=== PATIENT | female | born 1940 | race Caucasian/White ===

== ENCOUNTER 2024-01-27 11:16 | Emergency (ER) | payer OTHER, SELFPAY ==
[2024-01-27 11:23] VITALS: BP 169/87
[2024-01-27 12:00] VITALS: BP 162/73
[2024-01-27 12:21] VITALS: BP 149/89
--- NOTE | 2024-01-27 12:47 | ED.GENMED ---
History of Present Illness
General
Chief Complaint: Head Injury
Source: patient
Exam Limitations: none
Time Seen by Provider: 01/27/24 12:00
Nursing documentation reviewed up to this point in time: agreed with
History of Present Illness
History of Present Illness:
pt is a 83 y/o F with h/o GERD
previous hip orif by umair
here with pain in the right shoulder and pain in right lateral suprerior orbit after mechnaical fall today while in a grocery store
pt says she tripped on the floor as she was trying to reach for her cart and landedon her right arm and face
she did not Lose consciousness
+ laceration righ tlateral orbital region from her glasses
no headache, nasuea, vomiting, weakness,
having mostly right shoulder pain
ems called who helped pt up
no back pain, neck pain, cp, sob, abdomianl pain
no AC
Past History
Past History
ED Past Medical History: GERD and HTN
ED Past Surgical History: Appendectomy, Gynecological (Hyster), Orthopedic (Right hip replacaement) and Tonsilectomy
Social History
Tobacco: Former smoker
Alcohol: None
Personal:
Living: alone
Employment: Employed
Review of Systems
Review of Systems
Allergies reviewed?: Yes
All Other Systems: Not applicable
Phy Exam
Physical Exam
Physical Exam:
GENERAL: Alert , in no apparent distress
HEAD: NCAT
FACE: RIGHT LATERAL SUPERIOR ORBIT RIM TENDER WITH STS AND LACERATION 3 CM LINEAR
NO INFERIOR ORBITAL TENDENRESS
NORMAL EOMS
NECK: no midline tenderness, active ROM intact, no paraspinal muscle tenderness;
EYE: pupils equal and reactive, EOMs intact.
small subconjunctivaly hem L lateral eye(pt had injection in her eye a few days ago)
ENT: o/p clr, mmm. no hemotympanum
CARDIAC: Regular rate and rhythm, no edema
LUNGS: Clear breath sounds bilaterally, no acute respiratory distress, no wheezes/rales/rhonchi
ABDOMEN: Soft, without focal tenderness, no r/g, no cvat
NEUROLOGICAL: Alert and oriented, no focal neuro deficits, CN intact, 5/5 strength, sensation intact
SKIN: Warm and dry, laceration
MUSCULOSKELETAL: swollen R upper arm/shoulder region limited painful ROM
no dislocatin
no distal pain
normal pelvis
ranged both hips and knees no pain
PSYCH: Normal and appropriate interaction.
Course
Orders/Labs/Results
Orders:
Orders
01/27/24 11:56
Shoulder, Right, Trauma [CR Shoulder, Trauma - Right] Urgent
Comment:
Reason For Exam: Pain after fall
01/27/24 12:43
CT Cervical Spine W/o Iv Contr Urgent
Comment:
Reason For Exam: fall
CT Head W/o Iv Contrast Urgent
Comment:
Reason For Exam: right sided head injury
Acetaminophen [Tylenol] 650 mg PO NOW STA
Tetanus/Diphth/Acelpertussis [Adacel] 0.5 ml IM .ONCE ONE
Vital Signs
Initial and Last Documented VS:
Initial Vital Signs
Temp Pulse Resp BP Pulse Ox
97.6 F 74 20 169/87 96
01/27/24 11:23 01/27/24 11:23 01/27/24 11:23 01/27/24 11:23 01/27/24 11:23
Last Documented Vital Signs
Temp Pulse Resp BP Pulse Ox
97.6 F 92 18 145/88 96
01/27/24 11:23 01/27/24 15:25 01/27/24 15:25 01/27/24 15:25 01/27/24 15:25
Procedures
Laceration Closure
Right Lateral Eye:
Status of Wound: clean
Size of Wound in cm: 3
Description of Wound Edges: sharp
Preparation: cleaned with saline
Anesthesia: 1% Lidocaine with epi
Revision/Debridement: minor revision
Wound exploration: explored to base- no FB
Type of Closure: layered closure
Skin Closure Material: 6-0 nylon and 5-0 vicryl
Number of sutures: 9
MDM/Problems Addressed
Differential Diagnosis Includes:
right shoulder pain/fracture, head injury , facial laeration, contusion,, concussion
MDM/Problems Addressed:
83-year-old female not anticoagulated with mechanical trip and fall out of grocery store causing a right facial laceration and contusion as well as a right shoulder injury. Patient has limited painful range of motion of her right proximal shoulder
and x-rays independently reviewed by me which is consistent with a humeral fracture which is comminuted and slightly impacted. She is neurovascularly intact. There is no other musculoskeletal injuries. Her laceration was open and to the lateral
orbit, CT head and neck negative for trauma. Laceration was closed by me and well-approximated. Patient tolerated procedure well. Tylenol for pain, sling, follow-up with Ortho. I did speak with Dr. Mclean who recommended patient be seen in the
office, this may be a surgical fix
*Critical Care Note
Total Time (30-74mins, 75-104mins- exclusive of procedures): Not Applicable
ED Attending Note
-
Portions of this chart may have been created with voice recognition software.� Occasional wrong word or��sound alike� substitutions may have occurred due to the inherent limitations of voice recognition software.
Discharge Plan
Departure
Patient Disposition: Home (Routine Discharge)
Date of Disposition: 01/27/24
Time of Disposition: 15:02
Patient with high blood pressure during this ER visit?: Yes
Condition: Fair
Covid-19: Not Applicable
Discharge Problem:
Closed fracture of shoulder, Laceration of face, Head injury
Instructions: Head Injury in Adults (DC), Laceration Repair With Stitches (DC), Upper Arm Fracture ED
Prescriptions:
No Action
vitamins A,C,M-dwop-sujujl [PreserVision AREDS] 1 CAP capsule
1 cap PO DAILY
biotin 1 MG capsule
1 mg PO DAILY
amlodipine 5 MG tablet
5 mg PO DAILY Qty: 15 0RF
Meclizine Hcl [Motion Sickness] 25 MG Tablet
25 mg PO TID Qty: 12 0RF
cephalexin 500 MG capsule
500 mg PO BID Qty: 14 0RF
famotidine 20 MG tablet
20 mg PO BID Qty: 28 0RF
Rx Instructions:
Take 20 mg twice a day for 14 days
ascorbic acid (vitamin C) [Vitamin C] 500 MG tablet
1,000 mg PO BID Qty: 56 0RF
Rx Instructions:
Take 1,000 mg twice a day for 14 days
aspirin 81 MG tablet,chewable
81 mg PO DAILY Qty: 14 0RF
Rx Instructions:
Take 81 mg daily for 14 days
zinc sulfate 220 MG capsule
220 mg PO DAILY Qty: 14 0RF
Rx Instructions:
Take 220 mg daily for 14 days
cholecalciferol (vitamin D3) 1,000 UNITS tablet
2,000 units PO DAILY Qty: 28 0RF
Rx Instructions:
Take 2,000 units daily for 14 days
melatonin 5 MG tablet
5 mg PO HS Qty: 14 0RF
Rx Instructions:
Take 5 mg daily at bedtime for 14 days
Referrals:
Siddharth Vaughn MD [Family Provider] -
Rogelio Mclean MD [Active] - Follow up in 5-7 days
Activity Restrictions/Additional Instructions:
YOU BROKE YOUR SHOULDER
WEAR THE SLING UNTIL YOU SEE THE ORTHOPEDIST
CALL FOR AN APPOINTMENT
TAKE TYLENOL EVERY6 HOURS FOR PAIN
ICE OFF AND ON
KEEP THE WOUND CLEAN AND DRY FOR 24 HOURS
AFTER THAT YOU CAN GET IT WET IN THE BATH/SHOWER ONCE A DAY AND MAKE SURE IT IS CLEAN AND THERE IS NO DRIED BLOOD ON THE STITCHES
APPLY NEOSPORIN AND A BANDAID
THE STITCHES NEED TO BE REMOVED IN ABOUT 5-7 DAYS, SEE YOUR DOCTOR FOR THIS.
THE LAST DAY BEFORE STITCHES OUT, NO OINTMENT, LEAVE OPEN TO AIR
WATCH FOR SIGNS OF INFECTION AND RETURN NEEDED FOR PAIN, SWELLING, REDNESS, DRAINAGE, BLEEDING.
THE AT SCAN SHOWS NO INJURIES TO YOUR EYE, HEAD OR NECK
Interventions
Interventions:
*Risk Screen - Suicide Last Done: 01/27/24 11:23
*General Assessment Last Done: 01/27/24 11:23
*Neglect/Abuse Screening Last Done: 01/27/24 11:23
ED- Fall Risk Assessment Last Done: 01/27/24 11:44
*ED COVID-19 Vaccine History Last Done: 01/27/24 15:43
*Nursing Disposition Last Done: 01/27/24 15:35
ED- Neurological Assessment Last Done: 01/27/24 11:44
ED-Skin Assessment Last Done: 01/27/24 11:44
Discharge Date and Time
Discharge Date/Time: 01/27/24 15:30
Print Language: GERMAN
[2024-01-27] MEDS: TYLENOL 650 MG PO (12:54)
[2024-01-27] MEDS: ADACEL 0.5 ML IM (12:55)
[2024-01-27 13:00] VITALS: BP 151/87
[2024-01-27 14:19] VITALS: BP 145/91
[2024-01-27 15:25] VITALS: BP 145/88
== END 2024-01-27 15:30 | disposition home or self-care (01) ==
LOC: EMR 11:16
PROVIDERS: EMERGENCY PHYSICIAN Emergency Medicine; FAMILY PHYSICIAN Family Medicine
DX: S42.211A Unspecified displaced fracture of surgical neck of right humerus, initial encounter for closed fracture (principal); S09.90XA Unspecified injury of head, initial encounter; S01.81XA Laceration without foreign body of other part of head, initial encounter; W01.0XXA Fall on same level from slipping, tripping and stumbling without subsequent striking against object, initial encounter; I10 Essential (primary) hypertension; Z87.891 Personal history of nicotine dependence; Z23 Encounter for immunization
CPT/HCPCS: 99285; 12052; 90471; 70450; 72125; 73030; 90715

== ENCOUNTER 2024-10-03 10:05 | Inpatient (IN) | payer OTHER, SELFPAY ==
[2024-10-02 12:24] VITALS: BP 156/100
--- NOTE | 2024-10-02 13:03 | ED.GENMED ---
History of Present Illness
General
Chief Complaint: Musculo-Skeletal Complaint
Time Seen by Provider: 10/02/24 12:37
History of Present Illness
History of Present Illness:
84-year-old female presents to the emergency department for evaluation of right hip and buttock pain after a fall in the parking lot. She is unable to bear weight on the right lower extremity. Reports pain primarily to the buttock region. She is
not on anticoagulants
Past History
Past History
ED Past Medical History: GERD and HTN
ED Past Surgical History: Appendectomy, Gynecological (Hyster), Orthopedic (Right hip replacaement) and Tonsilectomy
Social History
Tobacco: Former smoker
Alcohol: None
Personal:
Living: alone
Employment: Employed
Review of Systems
Review of Systems
Allergies reviewed?: Yes
All Other Systems: ROS reviewed and negative except as documented in HPI and ROS
Phy Exam
Physical Exam
Physical Exam:
GEN: Well appearing, NAD, WDWN
Eyes: PERRLA, EOMs intact, no scleral icterus
HENT: NCAT, oral mucosa moist
Lungs: CTAB, no wheezes, rales, rhonchi, normal chest wall excursion
Cardiac: RRR, no M/R/G, no peripheral edema. Radial pulses 2+ bilat
Abdomen: S, NT, ND, NABS, no masses or hepatosplenomegaly
Neuro: AO x 3
MSK: No gross deformity or ecchymosis. No shortening or external rotation of the right lower extremity. Moderately tender to palpation of the gluteal region
Skin: No rashes, petechiae. Normal color, no pallor or jaundice.
Psych: Calm, cooperative, proper hygiene
Course
Orders/Labs/Results
Orders:
Orders
10/02/24 13:02
Acetaminophen [Tylenol] 1,000 mg PO NOW STA
Ibuprofen [Motrin] 600 mg PO NOW STA
CR Hip - RT w/wo Pel 2-3 Vw* Urgent
Comment:
Reason For Exam: fall gluteal pain
Include a pelvis x-ray?: Yes
10/02/24 15:26
Tramadol HCl [Ultram] 50 mg PO NOW STA
Pt Eval And Treat Urgent
Treatment: R sup/inf pubic rami fx; WBAT
Activity Level: As Tolerated
10/02/24 16:49
Complete Blood Count/With Diff Urgent
Comprehensive Metabolic Panel Urgent
10/02/24 17:32
Admit/Transfer Patient As Directed
Co-Sign Provider:
Level of Care: Observation services
Assign to:: Medical/Surgical
Physician / Group: Shira
Diagnosis: Pelvic Fracture
PRN Pain Medication Management As Directed
May give lesser potent ordered pain med per pt: Yes
preference::
Protocol:: Medication orders for pain may be administered in a
manner that supports deferring to patient preference
when the pt is:
- Requesting an ordered lesser potent pain medication.
Least to most potent pain medications are defined
as: acetaminophen < NSAID < tramadol < opioids
(morphine, oxycodone, hydromorphone).
- Requesting a lesser dose of the same medication IF
ORDERED.
- Requesting a less intrusive route of administration
if both routes are prescribed by the provider (PO <
IV).
10/02/24 17:33
Code Status As Directed
Resuscitation Status: Full Code
Abnormal Lab Results
10/02/24
16:49
MCHC 32.3 L g/dL
(33.0-37.0)
MPV 11.2 H fL
(7.4-10.4)
Abs Immat Gran (auto) 0.1 H 10^3/uL
(0-0.05)
Absolute Neuts (auto) 8.3 H 10^3/uL
(1.4-6.5)
Absolute Lymphs (auto) 1.1 L 10^3/uL
(1.2-3.4)
Neutrophils % 82.9 H %
(42.2-75.2)
Lymphocytes % 11.3 L %
(20.5-51.1)
Glucose 126 H mg/dl
(70-99)
10/02/24 16:49
10/02/24 16:49
Vital Signs
Initial and Last Documented VS:
Initial Vital Signs
Temp Pulse Resp BP Pulse Ox
97.4 F 99 16 156/100 98
10/02/24 12:24 10/02/24 12:24 10/02/24 12:24 10/02/24 12:24 10/02/24 12:24
Last Documented Vital Signs
Temp Pulse Resp BP Pulse Ox
97.4 F 99 16 156/100 98
10/02/24 12:24 10/02/24 12:24 10/02/24 12:24 10/02/24 12:24 10/02/24 12:24
MDM/Problems Addressed
MDM/Problems Addressed:
Imaging reveals superior and inferior pubic rami fracture on the right. She was given analgesics but remained quite unsteady with ambulation and was recommended for skilled rehab by PT. Unfortunately did not tolerate tramadol well in terms of
lightheadedness and fogginess. Will admit to the medical service for further management
*Critical Care Note
Total Time (30-74mins, 75-104mins- exclusive of procedures): Not Applicable
ED Attending Note
-
Portions of this chart may have been created with voice recognition software.� Occasional wrong word or��sound alike� substitutions may have occurred due to the inherent limitations of voice recognition software.
Discharge Plan
Departure
Patient Disposition: Admit
Date of Disposition: 10/02/24
Time of Disposition: 17:14
Presentation/result/management discussed w/ accepting MD/DO: Hospitalist
Discharge Problem:
Closed fracture of right superior pubic ramus, Closed fracture of right inferior pubic ramus
Interventions
Interventions:
*Risk Screen - Suicide Last Done: 10/02/24 12:24
*General Assessment Last Done: 10/02/24 12:40
*Neglect/Abuse Screening Last Done: 10/02/24 12:24
*ED- Fall Risk Assessment Last Done: 10/02/24 12:40
*ED COVID-19 Vaccine History Last Done: 10/02/24 12:40
ED-Musculoskeletal Assessment Last Done: 10/02/24 12:40
[2024-10-02] MEDS: TYLENOL 1000 MG PO ×2 (13:07→22:20)
[2024-10-02] MEDS: MOTRIN 600 MG PO (13:08)
--- NOTE | 2024-10-02 15:28 | CM ---
ED CM initially consulted for VN
Per nursing, pt with difficulty ambulating
PT eval will be placed
Pt resides with her dtr/Hiwot in a 2 story in-law suite with 13 steps to 2nd floor sleeping and bathing area
Pt is typically indep with ADLs and ambulation with no ADs
Pt has a WW, SPC and commode for use as needed
Pt has hx with [facility] and they are VN agency preference
Pt denied SNF hx or financial insecurities
If needed, dtr's side of home has a 1st floor bedroom and 2STE+ 1 threshold step
Dtr noted concern that she would not be able to physically provide safe care for pt if she is unable to ambulate
PCP- Be Tyler
Rx- Megan Manuel
Dtr is primary contact at [phone]
Son is currently out of country in the [facility]
If SNF needs on dc, pt will require auth
Discharge Disposition- TBD, home with VN vs SNF
[2024-10-02] MEDS: ULTRAM 50 MG PO (15:32)
[2024-10-02 16:25] VITALS: BP 150/106
[2024-10-02 16:30] VITALS: BP 150/100
[2024-10-02 17:01] LABS: % Basophils 0.2 % (0-2); % Eosinophils 0.1 % (0-6); % Immature Granulocytes 0.5 % (0-0.5); % Lymphocytes 11.3 % (20.5-51.1); % Neutrophils 82.9 % (42.2-75.2); Absolute Immature Granulocytes 0.1 10^3/uL (0-0.05); Absolute Lymphocytes 1.1 10^3/uL (1.2-3.4); Absolute Monocytes 0.5 10^3/uL (0.1-0.6); Absolute Neutrophils 8.3 10^3/uL (1.4-6.5); Hemoglobin 14.2 g/dL (12.0-16.0); Mean Corp Hgb Conc. 32.3 g/dL (33.0-37.0); Mean Corpuscular Hgb 28.4 pg (27.0-31.0); Mean Platelet Volume 11.2 fL (7.4-10.4); Nucleated Red Blood Cells % 0 %; Platelet Count 139 10^3/uL (130-400); Red Cell Dist. Width 13.4 % (11.5-14.5)
[2024-10-02 17:09] LABS: ALT (SGPT) 16 U/L (0-35); AST (SGOT) 27 U/L (14-36); Albumin 4.3 g/dl (3.5-5.0); Alkaline Phosphatase 101 U/L (38-126); Blood Urea Nitrogen 15 mg/dl (7-17); Calcium 9.3 mg/dl (8.4-10.2); Carbon Dioxide 29 mmol/L (22-30); Chloride 102 mmol/L (98-107); Glucose 126 mg/dl (70-99); Potassium 4.3 mmol/L (3.5-5.1); Sodium 141 mmol/L (135-145); Total Bilirubin 0.8 mg/dl (0.2-1.3); Total Protein 6.9 g/dl (6.3-8.2); eGFR > 60.00
--- NOTE | 2024-10-02 17:36 | HPS.HSE ---
Addendum entered and electronically signed by Shirley Silva MD 10/02/24 18:24:
I saw and examined the patient.
The [employer] or PA's note was reviewed and I agree with the note.
Comment:
84 years old female sustained mechanical fall presented with right lower extremity pain upon bearing weight. No head injury, no LOC.
Physical Exam
General: Comfortable and Conversant
HEENT: Anicteric and Moist mucous membranes
Respiratory: Clear and Non Labored Respirations
Cardiac: S1/S2, Regular Rhythm and Murmur
GI: Soft and Non Tender
Rectal: No rectal bleeding.
Musculoskeletal: No Clubbing, No Cyanosis and No Edema
Skin: Warm and Dry
Neuro: Awake, Alert, Oriented and Nonfocal/grossly intact
Psych: Calm
#Right Superior and Inferior Pubic Rami Fractures
Mechanical fall
-Consult Ortho
-Consult PT/OT
-Continue Tylenol 1000mg TID
-Continue ibuprofen for moderate pain and low dose tramadol for severe pain
# Cardiac Murmur
-Patient denies any prior history of murmur. No chest pain or sob
-Check Echocardiogram
# Possible undiagnosed HTN
Elevated BP upon visit in ER but could be stress related, will monitor for now
DVT proph: Lovenox
Code Status: Full Code
Total time spent to see the patient, examine the patient, review data and lab results, discuss treatment plan with patient, ER doctor and nursing staff around 75 minutes.
Original Note:
Family Physician
-
Family Physician: Be Tyler DO
Chief Complaint
-
Fall
History of Present Illness
Patient is an 84 y/o female past medical history of hypertension, and macular degeneration who presents following a fall. Patient reports she was closing her car door after putting her groceries in the back seat. When she stepped back she fell
backwards landing on her right buttock. She presents with inability to bear weight on her right lower extremity due to pain. She was seen by PT in the ED and she was unable to ambulate safely enough to return home.
Medical History
Past Medical History
Past Medical History: Reports Other
Additional Past Medical History:
Essential Hypertension
GERD
Macular Degeneration
Past Surgical History: Reports Other
Additional Past Surgical History:
Hysterectomy
Bladder Tuck
Right Hip Replacement
Social History
Tobacco: Former Smoker
Living: With Family (In-Law Suite)
Family History
Family History: Not pertinent
Allergies / Home Medications
Allergies reflects when Allergies were last updated in [employer].
Home Medications with original date entered in [employer]
Allergy/Medication List:
Allergies
Allergy/AdvReac Type Severity Reaction Status Date / Time
codeine Allergy Itching Verified 10/02/24 12:26
hydrocodone Allergy ITCHINESS Verified 10/02/24 12:26
FROM
HYDROCODONE
DM
03-09-03
Penicillins Allergy Rash Verified 10/02/24 12:26
Home Medications
vitamins A,C,I-lcry-qdjofg 4,296 mcg-226 mg-90 mg capsule (PreserVision AREDS) 1 cap PO BID 04/25/17
Review of Systems
-
A 12 point ROS was completed and negative except as noted: Yes
Constitutional: Denies Fever
Respiratory: Denies Cough or Trouble Breathing
Cardiac: Denies Chest Pain
Physical Exam
Vital Signs
Vital Signs
Temp Pulse Resp BP Pulse Ox
97.4 F 99 16 156/100 98
10/02/24 12:24 10/02/24 12:24 10/02/24 12:24 10/02/24 12:24 10/02/24 12:24
Physical Exam
General: Comfortable and Conversant
HEENT: Anicteric and Moist mucous membranes
Respiratory: Clear and Non Labored Respirations
Cardiac: S1/S2, Regular Rhythm and Murmur
GI: Soft and Non Tender
Rectal: Deferred by Provider
Musculoskeletal: No Clubbing, No Cyanosis and No Edema
Skin: Warm and Dry
Neuro: Awake, Alert, Oriented and Nonfocal/grossly intact
Psych: Calm
Laboratory Results
-
10/02/24 16:49
10/02/24 16:49
Laboratory Results
Total Bilirubin 0.8 mg/dl (0.2-1.3) 10/02/24 16:49
AST 27 U/L (14-36) 10/02/24 16:49
ALT 16 U/L (0-35) 10/02/24 16:49
Alkaline Phosphatase 101 U/L (38-126) 10/02/24 16:49
Data Reviewed
-
Diagnostic Radiology: Report Reviewed by me
Lab Data: Labs Reviewed by me
Impression/Plan
-
Right Superior and Inferior Pubic Rami Fractures
-Consult Ortho
-Consult PT/OT
-Continue Tylenol 1000mg TID
-Continue ibuprofen for moderate pain and low dose tramadol for severe pain
Cardiac Murmur
-Patient denies any prior history of murmur
-Check Echocardiogram
DVT proph: Lovenox
Code Status: Full Code
[2024-10-02 20:34] VITALS: BP 174/90
[2024-10-02 21:50] VITALS: BP 160/98
[2024-10-02] MEDS: OCUVITE SOFTGEL 1 CAP PO (22:20)
[2024-10-02] MEDS: COLACE 100 MG PO (22:20)
[2024-10-02 23:15] VITALS: BP 150/97
--- NOTE | 2024-10-02 23:36 | PTCARENOTE ---
21:45 pt rec'vd from ER dx Fall R gluteal pain. pt is aax03 able to make needs known, vs WNL, pt educated on wt bearing status, c/o right glute pain 09/28, static overlay in place, ordered tylenol administered, vs WNL, oriented to unit.
[2024-10-03 07:15] VITALS: BP 171/96
--- NOTE | 2024-10-03 07:58 | CON.ORTHO ---
Consultation
-
Date/Time Consultation Requested: 10/02/24 21:49
Date/Time Consultation Performed: 10/03/24 07:45
Requesting Provider: YVONNE Minaya
Performing Provider: YVONNE Chery, Dr. Khoa Hawk
Reason for Consultation: R pubic rami fracture
Consultation - Orthopedics
History
84-year-old female with noted history of a right total hip arthroplasty with Dr. Anne in November 2013 for femoral neck fracture presented to [facility] after mechanical fall in the parking lot sustained yesterday. Isolated closed injury
and neuro vastly intact. She difficulty bearing weight see the emergency room and with imaging diagnosed with right pubic rami fractures. She reports pain is improved since she has been resting denies any other pain or current paresthesias
Allergies / Home Medications
Past Medical History: Reports Other
Additional Past Medical History:
Essential Hypertension
GERD
Macular Degeneration
Past Surgical History: Reports Other
Additional Past Surgical History:
Hysterectomy
Bladder Tuck
Right Hip Replacement
Social History
Tobacco: Former Smoker
Living: With Family (In-Law Suite)
Family History
Family History: Not pertinent
Allergy/AdvReac Type Severity Reaction Status Date / Time
codeine Allergy Itching Verified 10/02/24 12:26
hydrocodone Allergy ITCHINESS Verified 10/02/24 12:26
FROM
HYDROCODONE
DM
03-09-03
Penicillins Allergy Rash Verified 10/02/24 12:26
�Medication �Instructions �Recorded
vitamins A,C,U-gzha-bbeewg 4,296 1 cap PO BID Supplement 04/25/17
mcg-226 mg-90 mg capsule
(PreserVision AREDS)
Vital Signs / Lab Results
Temp Pulse Resp BP Pulse Ox
97.6 F 91 17 150/97 95
10/02/24 23:15 10/02/24 23:15 10/02/24 23:15 10/02/24 23:15 10/02/24 23:15
PHYSICAL EXAM:
General-patient is well-nourished well-developed no acute distress conscious when oriented.
Musculoskeletal:-Focused examination of the pelvis and right lower extremity shows skin is intact with no erythema edema or ecchymosis. There is anatomic alignment of limb length all rested in bed. No significant pain with gentle logroll of the
right hip. Mild discomfort with gentle hip range of motion deep in the pelvis. Neurovascularly intact at baseline L3-S1
IMAGING: X-rays taken of the right pelvis and hip show status post right total hip arthroplasty without evidence of hardware or relative osseous complication. There is minimally displaced fracture of the inferior and superior pubic rami of the
right side.
10/02/24 16:49
10/02/24 16:49
Assessment / Plan
84-year-old female with minimally displaced right inferior and superior pubic rami fractures sustained 02 October 2024
- Imaging was shown and reviewed with the patient. Recommend for nonoperative treatment as the fracture is stable.
- Recommend PT/OT with assist devices as indicated. Patient may be weightbearing as tolerated
- DVT prophylaxis per primary
- No diet restrictions from an orthopedic standpoint
- Pain appears controlled on current regimen
- Recommend outpatient follow-up in approximately 4 to 6 weeks from date of injury; orthopedic surgery will follow peripherally. Please reengage if any questions or concerns. Discharge information up-to-date
[2024-10-03] MEDS: OCUVITE SOFTGEL 1 CAP PO ×2 (08:56→22:26)
[2024-10-03] MEDS: COLACE 100 MG PO (08:56)
[2024-10-03] MEDS: TYLENOL 1000 MG PO ×3 (08:56→22:25)
[2024-10-03] MEDS: NORVASC 2.5 MG PO (09:04)
--- NOTE | 2024-10-03 10:00 | W.PN.HOSP.TC ---
Today's Communication/Plan
-
Echo
PRN amlodipine
Assessment / Plan
Assessment / Plan
Physical Exam
General: Comfortable and Conversant
HEENT: Anicteric and Moist mucous membranes
Respiratory: Clear and Non Labored Respirations
Cardiac: S1/S2, Regular Rhythm and Murmur
GI: Soft and Non Tender
Rectal: No rectal bleeding.
Musculoskeletal: No Clubbing, No Cyanosis and No Edema
Skin: Warm and Dry
Neuro: Awake, Alert, Oriented and Nonfocal/grossly intact
Psych: Calm
# Acute minimally displaced right inferior and superior pubic rami fractures sustained 02 October 2024, mechanical fall
- Orth reviewed Imaging, recommend for nonoperative treatment as the fracture is stable.
c/w Tylenol 1 gm TID, PRN Tramadol/ Ibuprofen
Appreciate Ortho help
c/w DVT prophylaxis.
# Cardiac Murmur
-Patient denies any prior history of murmur. No chest pain or sob
-Check Echocardiogram
# Possible undiagnosed primary HTN
Elevated BP upon visit in ER but could be stress related, will monitor for now
Add PRN low dose amlodipine
f/w Echo
DVT proph: Lovenox
Code Status: Full Code
Total time spent to see the patient, examine the patient, review data and lab results, discuss treatment plan with patient and nursing staff around 55 minutes
Anticipated Discharge: 24 - 48 hours
Subjective/Interval History
-
Date of Service: October 03, 2024
Objective Data
-
Vital Signs:
Vital Signs
Temp Pulse Resp BP Pulse Ox
98.5 F 100 16 187/107 95
10/03/24 07:15 10/03/24 09:04 10/03/24 07:15 10/03/24 09:04 10/03/24 07:15
I&O
10/02/24 10/03/24 10/04/24
06:59 06:59 06:59
Intake Total 480 / 480
Balance 480 / 480
[2024-10-03 11:05] VITALS: BP 137/94
--- NOTE | 2024-10-03 11:54 | CM ---
Addendum entered by Geno Lima 10/03/24 15:51:
auth approved by [email or web address] for [facility]; Auth [id number] from 10/04-10/09. Next review 10/09/24. Auth for ambulance transportation is [id number], copay is 230$. CM will update admissions at [facility] with auth information.
Addendum entered by Geno Lima 10/03/24 15:29:
[facility] agreed to accept patient tomorrow, pending COVID test. Please call report to [phone], fax # [phone]. Pending [facility] numbers for call to start auth.
Addendum entered by Geno Lima 10/03/24 14:37:
Per [facility] patient accepted pending bed availability, CM sent request for possible admission tomorrow and family first choice to liaison at [facility]. Patient will need auth from [facility]. CM will continue to follow for discharge
planning needs.
plan; tentative transfer to [facility] pending confirmation of bed and auth.
Original Note:
Per patient family requests for referrals to [facility] and [facility]. CM sent referrals and await response. CM will continue to follow for discharge planning needs.
Plan; SNF
[2024-10-03 13:27] VITALS: BP 141/70; PULSE 100; O2SAT 99
[2024-10-03 14:14] VITALS: BP 141/70; PULSE 101; O2SAT 98
[2024-10-03 15:15] VITALS: BP 134/88
[2024-10-03] MEDS: LOVENOX 40 MG SC (18:01)
[2024-10-03] MEDS: COLACE PO (22:31)
[2024-10-03 23:17] VITALS: BP 153/100
[2024-10-04 06:58] LABS: Hematocrit 42.1 % (37.0-47.0); Hemoglobin 14.1 g/dL (12.0-16.0); Mean Corp Hgb Conc. 33.5 g/dL (33.0-37.0); Mean Corpuscular Hgb 29.1 pg (27.0-31.0); Mean Corpuscular Volume 86.8 fL (81.0-99.0); Mean Platelet Volume 11.5 fL (7.4-10.4); Platelet Count 117 10^3/uL (130-400); Red Blood Cell Count 4.85 10^6/uL (4.20-5.40); Red Cell Dist. Width 13.4 % (11.5-14.5); White Blood Cell Count 6.3 10^3/uL (4.8-10.8)
[2024-10-04 07:30] VITALS: BP 165/97
[2024-10-04 07:39] LABS: Blood Urea Nitrogen 10 mg/dl (7-17); Calcium 9.2 mg/dl (8.4-10.2); Carbon Dioxide 28 mmol/L (22-30); Chloride 104 mmol/L (98-107); Glucose 103 mg/dl (70-99); Potassium 3.9 mmol/L (3.5-5.1); Sodium 140 mmol/L (135-145); eGFR > 60.00
[2024-10-04 08:05] LABS: TSH < 0.02 uIU/ml (0.47-4.68)
[2024-10-04] MEDS: NORVASC 2.5 MG PO (08:20)
[2024-10-04] MEDS: OCUVITE SOFTGEL 1 CAP PO (08:21)
[2024-10-04] MEDS: COLACE 100 MG PO (08:22)
[2024-10-04] MEDS: TYLENOL 1000 MG PO (08:22)
--- NOTE | 2024-10-04 09:05 | W.PN.HOSP.TC ---
Today's Communication/Plan
-
dc
Assessment / Plan
Assessment / Plan
Physical Exam
General: Comfortable and Conversant
HEENT: Anicteric and Moist mucous membranes
Respiratory: Clear and Non Labored Respirations
Cardiac: S1/S2, Regular Rhythm and Murmur
GI: Soft and Non Tender
Rectal: No rectal bleeding.
Musculoskeletal: No Clubbing, No Cyanosis and No Edema
Skin: Warm and Dry
Neuro: Awake, Alert, Oriented and Nonfocal/grossly intact
Psych: Calm
# Acute minimally displaced right inferior and superior pubic rami fractures sustained 02 October 2024, mechanical fall
- Orth reviewed Imaging, recommend for nonoperative treatment as the fracture is stable.
c/w Tylenol 1 gm TID, PRN Tramadol/ Ibuprofen
Appreciate Ortho help
c/w DVT prophylaxis.
# Cardiac Murmur
-Patient denies any prior history of murmur. No chest pain or sob
Echocardiogram showed mild aortic stenosis, recommend outpatient follow-up with a primary care doctor
#Low TSH
Patient has no symptoms of hypo or hyperthyroid. Patient expressed her wishes to avoid being on unnecessary pills. Discussed with patient. Discussed with daughter. Recommend to repeat TSH/T4/T3 as outpatient with a primary care doctor. They
verbalized understanding
# Possible undiagnosed primary HTN
Daughter reported that her mother used to take blood pressure pill while ago but she told her that blood pressure was normal
Started on amlodipine with good tolerance.
DVT proph: Lovenox
d/w daughter Hiwot about DVT. Patient has not good appetite and she is underweight. Would like to avoid full dose of aspirin. With her underweight and thin skin, given her Lovenox or heparin shots for 4 weeks will be too severe and may cause a
skin bruising/necrosis. The other option will be a low-dose Xarelto. Discussed with Hiwot potential side effects of Xarelto including bleeding. Patient will be on Xarelto 10 mg daily for 4 weeks or until she is fully mobile and following
orthopedic doctor
Code Status: Full Code
Total discharge time spent to see the patient, examine the patient, review data and lab results, discuss discharge plan with patient, daughter and nursing staff around 69 minutes
Anticipated Discharge: Today
Subjective/Interval History
-
Date of Service: October 04, 2024
Doing well
No chest pain
No sob
No abd pain
Objective Data
-
Labs:
Laboratory Results
10/04/24
06:23
WBC 6.3
Hgb 14.1
Hct 42.1
Plt Count 117 L
Sodium 140
Potassium 3.9
Chloride 104
Carbon Dioxide 28
BUN 10
Creatinine 0.5 L
Glucose 103 H
Calcium 9.2
Vital Signs:
Vital Signs
Temp Pulse Resp BP Pulse Ox
97.7 F 96 18 157/91 96
10/04/24 07:30 10/04/24 08:20 10/04/24 07:30 10/04/24 08:20 10/04/24 07:30
I&O
10/03/24 10/04/24 10/05/24
06:59 06:59 06:59
Intake Total 480 / 480 3030 / 3030
Balance 480 / 480 3030 / 3030
[2024-10-04 09:06] LABS: COVID-19 Antigen Negative (Negative)
--- NOTE | 2024-10-04 10:49 | CM ---
Patient seen at bedside. IMM completed and placed on chart. Patient for brass pickler via ambulance at 12:30, family aware of copay. CM will continue to follow for discharge planning needs.
Plan; [facility]
Please call report to [phone], fax # [phone]
--- NOTE | 2024-10-04 13:11 | W.DCSUMMARY ---
Discharge Summary
Discharge Data
Date of Admission: 10/02/24
Date of Discharge: 10/04/24
-
Pending Results: No
Hospital Course
84 years old female admitted after a fall. She had minimally displaced right inferior and superior pubic rami fractures. Patient was evaluated by orthopedic doctor. Recommended nonoperative treatment with physical therapy/weightbearing as
tolerated. DVT prophylaxis option was discussed with patient and her daughter. Patient has history of decreased appetite and underweight. Decision was to go with low-dose Xarelto for DVT prophylaxis. Patient was found to have cardiac murmur.
Echocardiogram showed mild aortic stenosis with normal left ventricular systolic function. Patient was noted to have uncontrolled blood pressure. She was on blood pressure medication in the past but she stopped it. She was started on amlodipine
with good tolerance. Blood work showed low level of thyroid-stimulating hormone. Discussed with patient and her daughter, recommended repeat of blood work in outpatient setting. Patient remained hemodynamically stable. She was discharged to
[facility] facility in a stable condition.
Discharge Plan
-
Patient Disposition: Half-Way/SNF
Discharge Diagnosis/Procedures: Acute minimally displaced right inferior and superior pubic rami fractures sustained 02 October 2024, mechanical fall :PT/OT with assist devices as indicated. Patient may be weightbearing as tolerated
Discussed options of DVT prophylaxis, low-dose Xarelto for 4 weeks
-Newly diagnosed primary HTN
- Mild aortic stenosis.
- Low TSH, could be stress related. Recommend repeat TSH/T4/T3 testing with the primary care doctor
Diet: As tolerated
Blood Work: BMP & CBC in 1 week. TSH/T4/T3 with PCP visit
Referrals:
Be Tyler DO [Family Provider] - in one to two weeks
Gorge Anne MD [Active] - (f/u 4-6 weeks from date of injury for exam and x-rays)
Prescriptions:
New
acetaminophen [Tylenol Extra Strength] 500 mg Tablet
1,000 mg PO Q8H Qty: 30 0RF
tramadol 50 mg Tablet
25 mg PO Q8HPRN PRN (Reason: severe pain) Qty: 10 0RF
ibuprofen 400 mg Tablet
400 mg PO BIDPRN PRN (Reason: moderate pain) Qty: 10 0RF
amlodipine 5 mg tablet
5 mg PO DAILY Qty: 30 0RF
Xarelto 10 mg tablet
10 mg PO DAILY Qty: 28 0RF
Continued
PreserVision AREDS 1 CAP capsule
1 cap PO BID
Discharge Orders:
Discharge Patient (As Directed); Ordered 10/04/24
Ordered By: Shirley Silva
Discharge Date and Time
Discharge Date/Time: 10/04/24 12:41
Print Language: COMORAN
== END 2024-10-04 12:41 | DRG 536 ==
LOC: 2 SOUTH 10:05
PROVIDERS: Physician Assistant; ADMITTING PHYSICIAN Internal Medicine; CONSULT PHYSICIAN Orthopaedic Surgery; EMERGENCY PHYSICIAN Emergency Medicine; FAMILY PHYSICIAN Family Medicine
DX: S32.591A Other specified fracture of right pubis, initial encounter for closed fracture (principal); I10 Essential (primary) hypertension; K21.9 Gastro-esophageal reflux disease without esophagitis; R01.1 Cardiac murmur, unspecified; H35.30 Unspecified macular degeneration; R63.6 Underweight; W01.0XXA Fall on same level from slipping, tripping and stumbling without subsequent striking against object, initial encounter; Y93.89 Activity, other specified; Y92.481 Parking lot as the place of occurrence of the external cause; Z96.641 Presence of right artificial hip joint; Z87.891 Personal history of nicotine dependence; Z90.49 Acquired absence of other specified parts of digestive tract; Z88.0 Allergy status to penicillin; Z88.5 Allergy status to narcotic agent; Z90.710 Acquired absence of both cervix and uterus
CPT/HCPCS: 73502; 80048; 80053; 84443; 85025; 85027; 87811; 93306; 97116; 97166; 97530; 97535; 99285

== ENCOUNTER 2024-10-06 21:02 | Emergency (ER) | payer OTHER, SELFPAY ==
[2024-10-06 21:05] VITALS: BP 158/93; BMI 18.8
[2024-10-06 21:17] LABS: Glucose - Point of Care 173 mg/dl (70-99)
[2024-10-06 21:35] LABS: % Basophils 0.2 % (0-2); % Eosinophils 0.2 % (0-6); % Immature Granulocytes 0.5 % (0-0.5); % Lymphocytes 7.2 % (20.5-51.1); % Monocytes 4.5 % (1.7-9.3); % Neutrophils 87.4 % (42.2-75.2); Absolute Immature Granulocytes 0.1 10^3/uL (0-0.05); Absolute Lymphocytes 0.7 10^3/uL (1.2-3.4); Absolute Monocytes 0.5 10^3/uL (0.1-0.6); Hematocrit 42.8 % (37.0-47.0); Hemoglobin 14.2 g/dL (12.0-16.0); Mean Corp Hgb Conc. 33.2 g/dL (33.0-37.0); Mean Corpuscular Hgb 28.5 pg (27.0-31.0); Mean Corpuscular Volume 85.8 fL (81.0-99.0); Mean Platelet Volume 11.8 fL (7.4-10.4); Nucleated Red Blood Cells % 0 %; Platelet Count 134 10^3/uL (130-400); Red Blood Cell Count 4.99 10^6/uL (4.20-5.40); Red Cell Dist. Width 13.4 % (11.5-14.5); White Blood Cell Count 10.3 10^3/uL (4.8-10.8)
--- NOTE | 2024-10-06 21:35 | ED.GENMED ---
History of Present Illness
General
Chief Complaint: Change in Mental Status
Source: patient and ambulance crew
Exam Limitations: clinical condition
Time Seen by Provider: 10/06/24 21:07
History of Present Illness
History of Present Illness:
This is an 84-year-old female presents with change in mental status. Patient reportedly had physical therapy earlier in the morning and did complain of a headache. She was then last seen normal around 2 PM. At around 6:30 PM family was visiting
noted the patient was forgetful and not quite herself. Also noted a little bit of slurred speech. Her blood sugar by EMS was normal. EMS did not find anything more than the little bit slurred speech and the fact that she was not oriented
completely. Patient was noted to recently be here for a visit and had a minimally displaced right inferior and superior pubic rami fractures. The patient was put on Xarelto for DVT prophylaxis.
Daughter states that she was not quite herself this evening and advised the [facility] to the hospital
Past History
Past History
ED Past Medical History: GERD, HTN and Valvular disease (Aortic stenosis)
ED Past Surgical History: Appendectomy, Gynecological ([facility]), Orthopedic (Right hip replacaement) and Tonsilectomy
Social History
Tobacco: Former smoker
Alcohol: None
Personal:
Living: alone
Employment: Employed
Phy Exam
Physical Exam
Physical Exam:
CONSTITUTIONAL Patient alert and oriented to person, place. Vital signs reviewed.
HEAD atraumatic, normocephalic.
EYES eyelids normal to inspection, Extraocular muscles intact, Conjunctiva normal, Sclera normal.
NECK normal range of motion, Trachea midline, no jugular venous distention. No obvious tenderness
RESPIRATORY CHEST No respiratory distress noted, Chest expansion equal, Bilateral breath sounds clear.
ABDOMEN abdomen nontender, Bowel sounds normal. No distention.
BACK normal inspection, no obvious deformities
UPPER EXTREMITY range of motion normal, Motor strength normal, no cyanosis, no edema.
LOWER EXTREMITY range of motion normal, Motor strength normal, no cyanosis, no edema.
NEURO speech is slightly slurred. She moves extremities equally bilaterally. Slight limited hip flexion due to recent pelvic fracture. GCS 14
SKIN skin warm, dry, and normal in color.
Course
Orders/Labs/Results
Orders:
Orders
10/06/24 21:13
Electrocardiogram (*1) Stat
Reason for Study: Other
Other Reason for Exam: neuro symptoms
CT Head W/o Iv Contrast Urgent
Reason For Exam: slurred speech, change in ms, on eliquis
Bedside Glucose- Treatment ONCE
Cardiac Monitoring- Treatment ONCE
EKG- Treatment ONCE
10/06/24 21:20
Basic Metabolic Panel Urgent
Complete Blood Count/With Diff Urgent
Troponin I Urgent
10/06/24 21:37
Prothrombin Complex(Pcc),Human [Kcentra] 1,527 unit Empty Viaflex Container 100 ml [Viaflex Empty Container] 60 ml IV NOW
Does patient have a dx of serious acute active bleeding?: Yes
Does patient have prior history of HIT?: No
Urgent surgery/invasive procedure planned in next 6 hours?: No
10/06/24 21:51
Speech Screening from [place] Routine
Abnormal Lab Results
10/06/24 10/06/24
21:16 21:20
MPV 11.8 H fL
(7.4-10.4)
Abs Immat Gran (auto) 0.1 H 10^3/uL
(0-0.05)
Absolute Neuts (auto) 9.0 H 10^3/uL
(1.4-6.5)
Absolute Lymphs (auto) 0.7 L 10^3/uL
(1.2-3.4)
Neutrophils % 87.4 H %
(42.2-75.2)
Lymphocytes % 7.2 L %
(20.5-51.1)
Creatinine 0.4 L mg/dL
(0.6-1.0)
Glucose 176 H mg/dl
(70-99)
POC Glucose 173 H mg/dl
(70-99)
10/06/24 21:20
10/06/24 21:20
Vital Signs
Initial and Last Documented VS:
Initial Vital Signs
Temp Pulse Resp BP Pulse Ox
98.4 F 105 24 158/93 98
10/06/24 21:05 10/06/24 21:05 10/06/24 21:05 10/06/24 21:05 10/06/24 21:05
Last Documented Vital Signs
Temp Pulse Resp BP Pulse Ox
98.4 F 96 23 155/96 94
10/06/24 21:05 10/06/24 22:00 10/06/24 22:00 10/06/24 22:00 10/06/24 22:00
MDM/Problems Addressed
MDM/Problems Addressed:
Acute subdural hematoma, therapeutic coagulopathy
*Radiology
Radiology exam reviewed: preliminary read by ED provider (Large left subdural hematoma with midline shift)
*Pulse Oximetry
Patient hypoxic: no
*EKG
Interpreted by ED Provider?: Yes
Interpretation: normal
Rate: normal
[place]: normal axis
QRS Pattern: normal QRS
Ischemia: no ischemia
*Volunteer Recruiter Interpretation
Rate: normal
Interpretation: normal
Rhythm: sinus
*Critical Care Note
Total Time (30-74mins, 75-104mins- exclusive of procedures): 47 minutes
Data Reviewed
Source: patient, family and ambulance crew
Further Testing Considered But Not Given:
Consider C-spine imaging but no new fall
Patient Management
Discussion with other providers: Database Analyst (Case discussed with trauma at [facility])
Escalation/DeEscalation of care consider admission/obs:
84-year-old female who was recently here on the 14 after fall. Was started on Xarelto for DVT prophylaxis. Did reportedly complain of headache earlier today. In ED with altered mentation. CT shows sizable left-sided subdural with midline
shift. Kcentra ordered. Await discussion with [facility] trauma
[address] [place] flight team arrived for transfer. Patient is awake. Occasionally closes her eyes but easily arousable. Airway intact and patent. Airway protection not needed prior to transport
ED Attending Note
-
Portions of this chart may have been created with voice recognition software.� Occasional wrong word or��sound alike� substitutions may have occurred due to the inherent limitations of voice recognition software.
Discharge Plan
Departure
Patient Disposition: Acute Care Hospital
Date of Disposition: 10/06/24
Time of Disposition: 21:35
Discharge Problem:
Acute subdural hematoma
Prescriptions:
No Action
PreserVision AREDS 1 CAP capsule
1 cap PO BID
acetaminophen [Tylenol Extra Strength] 500 mg Tablet
1,000 mg PO Q8H Qty: 30 0RF
tramadol 50 mg Tablet
25 mg PO Q8HPRN PRN (Reason: severe pain) Qty: 10 0RF
ibuprofen 400 mg Tablet
400 mg PO BIDPRN PRN (Reason: moderate pain) Qty: 10 0RF
amlodipine 5 mg tablet
5 mg PO DAILY Qty: 30 0RF
Xarelto 10 mg tablet
10 mg PO DAILY Qty: 28 0RF
PreserVision AREDS-2 250-90-40-1 mg Capsule
1 tab PO BID
Hospital Transfer
Other hospital: [facility]
I certify that the patient requires transfer: Yes
Discussed case with accepting physician: Trauma
Reason for transfer: specialties available
Interventions
Interventions:
*Risk Screen - Suicide Last Done: 10/06/24 21:05
*General Assessment Last Done: 10/06/24 21:05
*Neglect/Abuse Screening Last Done: 10/06/24 21:05
*ED- Fall Risk Assessment Last Done: 10/06/24 21:05
*ED COVID-19 Vaccine History Last Done: 10/06/24 21:05
*Nursing Disposition Last Done: 10/06/24 22:22
ED- Pulmonary Assessment Last Done: 10/06/24 21:48
ED-Psychological Assessment Last Done: 10/06/24 22:28
ED- Neurological Assessment Last Done: 10/06/24 21:48
ED- Cardiac Assessment Last Done: 10/06/24 21:48
ED Swallowing Screen Last Done: 10/06/24 21:48
Discharge Date and Time
Discharge Date/Time: 10/06/24 22:29
Print Language: MONGOLIAN
[2024-10-06] MEDS: KCENTRA 60 UNIT IV (21:54)
[2024-10-06 21:56] VITALS: BP 155/90
[2024-10-06 21:58] LABS: Troponin I < 0.012 ng/ml
[2024-10-06 22:00] VITALS: BP 155/96
[2024-10-06 22:01] LABS: Blood Urea Nitrogen 13 mg/dl (7-17); Calcium 9.3 mg/dl (8.4-10.2); Carbon Dioxide 27 mmol/L (22-30); Chloride 99 mmol/L (98-107); Estimated Creatinine Clearance 60 ml/min; Glucose 176 mg/dl (70-99); Sodium 136 mmol/L (135-145); eGFR > 60.00
== END 2024-10-06 22:29 | disposition short-term general hospital (02) ==
LOC: EMR 21:02
PROVIDERS: EMERGENCY PHYSICIAN Emergency Medicine; FAMILY PHYSICIAN Family Medicine
DX: S06.5XAA Traumatic subdural hemorrhage with loss of consciousness status unknown, initial encounter (principal); X58.XXXA Exposure to other specified factors, initial encounter; K21.9 Gastro-esophageal reflux disease without esophagitis; I10 Essential (primary) hypertension; I35.0 Nonrheumatic aortic (valve) stenosis
CPT/HCPCS: 99284; 96374; 70450; 80048; 82962; 84484; 85025; 93005; J7168

== ENCOUNTER → 2024-10-26 08:34 | Outpatient (REF) | payer OTHER, SELFPAY ==
[2024-10-26 11:52] LABS: % Basophils 0.8 % (0-2); % Eosinophils 5.4 % (0-6); % Immature Granulocytes 0.3 % (0-0.5); % Monocytes 6.8 % (1.7-9.3); % Neutrophils 71.7 % (42.2-75.2); Absolute Basophils 0.1 10^3/uL (0-0.2); Absolute Eosinophils 0.4 10^3/uL (0-0.7); Absolute Lymphocytes 1.2 10^3/uL (1.2-3.4); Absolute Monocytes 0.5 10^3/uL (0.1-0.6); Absolute Neutrophils 5.6 10^3/uL (1.4-6.5); Hematocrit 40.3 % (37.0-47.0); Hemoglobin 12.6 g/dL (12.0-16.0); Mean Corp Hgb Conc. 31.3 g/dL (33.0-37.0); Mean Corpuscular Hgb 28.5 pg (27.0-31.0); Mean Corpuscular Volume 91.2 fL (81.0-99.0); Nucleated Red Blood Cells % 0 %; Red Blood Cell Count 4.42 10^6/uL (4.20-5.40); Red Cell Dist. Width 15.6 % (11.5-14.5); White Blood Cell Count 7.7 10^3/uL (4.8-10.8)
[2024-10-26 12:02] LABS: ALT (SGPT) 26 U/L (0-35); AST (SGOT) 31 U/L (14-36); Albumin 3.1 g/dl (3.5-5.0); Alkaline Phosphatase 137 U/L (38-126); Blood Urea Nitrogen 19 mg/dl (7-17); Calcium 9.5 mg/dl (8.4-10.2); Carbon Dioxide 28 mmol/L (22-30); Chloride 104 mmol/L (98-107); Glucose 141 mg/dl (70-99); Potassium 4.8 mmol/L (3.5-5.1); Sodium 139 mmol/L (135-145); Total Bilirubin 0.6 mg/dl (0.2-1.3); Total Protein 5.7 g/dl (6.3-8.2); eGFR > 60.00
== END ==
LOC: OLABN 08:34
PROVIDERS: ATTENDING PHYSICIAN Student in an Organized Health Care Education/Training Program
DX: I62.00 Nontraumatic subdural hemorrhage, unspecified (principal)
CPT/HCPCS: 36415; 80053; 85025